=== PATIENT | female | born 1990 | race African-American/Black ===

== ENCOUNTER 2017-01-08 23:21 | Emergency (ER) | payer SELFPAY ==
[~2017-01-08] VITALS: Ht 162.6 cm; Wt 61.2 kg
--- NOTE | 2017-01-08 23:55 | NUR ---
Patient signed consent for Xray, no need for urine test per ER MD, Dr Feliciano.
[2017-01-09 00:22] VITALS: BP 123/68
--- NOTE | 2017-01-09 00:22 | NUR ---
Patient discharged to home in stable conditon. Written and verbal after care instructions given. Patient verbalizes understanding of instructions. Ambulated from ER with stable gait. All belongings with patient.
== END 2017-01-09 00:23 | disposition home or self-care (01) ==
LOC: ER 23:23
DX: R07.89 Other chest pain (principal)
CPT/HCPCS: 71010; 93005; A4663